=== PATIENT | female | born 1940 | race Caucasian/White ===

== ENCOUNTER 2018-09-06 13:41 | Inpatient (IN) | payer MEDICARE, MEDICAID ==
[~2018-09-06] VITALS: Ht 152.4 cm; Wt 84.4 kg
[2018-09-06] VITALS (9 sets, daily range): BP systolic 97–128; BP diastolic 57–72
[2018-09-06] MEDS ORDERED: PLAVIX75 MG PO (14:01)
[2018-09-06] MEDS ORDERED: KLOR-CON M2020 MEQ PO (14:02)
[2018-09-06] MEDS ORDERED: SINGULAIR10 MG PO (14:02)
[2018-09-06] MEDS ORDERED: LASIX40 MG PO (14:02)
[2018-09-06] MEDS ORDERED: TEMAZEPAM30 MG PO (14:02)
[2018-09-06] MEDS ORDERED: BETAPACE 80 MG80 MG PO (14:03)
[2018-09-06] MEDS ORDERED: ASPIRIN81 MG PO (14:03)
[2018-09-06 14:36] LABS: BASOPHILS 0.2 % (0-2); EOSINOPHILS 0.2 % (0-7); HEMATOCRIT 44.6 % (36.0-48.0); HEMOGLOBIN 14.6 g/dL (12-16); IMMATURE GRANULOCYTES 0.2 % (0-5); LYMPHOCYTES 18.9 % (15-50); MCH 31.3 pg (26.0-34.0); MCHC 32.7 g/dL (31.0-37.0); MCV 95.5 fL (80.0-100.0); MEAN PLATELET VOLUME 10.5 fL (7.4-10.4); MONOCYTES 4.3 % (2-11); NEUTROPHILS 76.2 % (40-80); PLATELET COUNT 327 10x3/uL (130-400); RBC 4.67 10x6/uL (4.00-5.40); RDW 16.2 % (11.5-14.5); WBC 11.1 10x3/uL (4.8-10.8)
[2018-09-06 14:51] LABS: ALBUMIN 2.8 g/dL (3.4-5.0); ANION GAP 15.2 mmol/L (8-16); BILIRUBIN - TOTAL 0.6 mg/dL (0.2-1.3); CALCIUM 8.3 mg/dL (8.5-10.1); CARBON DIOXIDE 21.9 mmol/L (21.0-32.0); POTASSIUM - SERUM 5.1 mmol/L (3.5-5.1); PROTEIN - SERUM 6.5 g/dL (6.4-8.2)
[2018-09-06 16:35] LABS: TROPONIN-I 0.032 ng/mL (0.000-0.060)
[2018-09-07 00:21] VITALS: BP 101/60; BMI 36.4
[2018-09-07 04:00] VITALS: BP 131/72
[2018-09-07 07:00] VITALS: BP 129/80
--- NOTE | 2018-09-07 10:45 | HP ---
PATIENT: ANICETO AJ MEDICAL RECORD: [id number] ACCOUNT: [id number] LOCATION:[address] : 40 ADMISSION DATE: 09/06/18 PCP: LOUIE BARAJAS MD HISTORY AND PHYSICAL EXAMINATION DIAGNOSES: 1. Atrial fibrillation. 2. Nonsustained ventricular tachycardia. 3. Coronary artery disease. 4. Previous coronary percutaneous transluminal coronary angioplasty and stent. HISTORY OF PRESENT ILLNESS: Ms. Aj presents with fatigue and shortness of breath. She presented to our office with it and was found to be in new-onset atrial fibrillation, this was yesterday. She was placed on a monitor. With monitor, she has had episodes of ventricular tachycardia as well as underlying atrial fibrillation. She has not had a history of atrial fibrillation. She does have a history of coronary artery disease, two-vessel PTCA and stent in June. She has not had any chest discomfort. Her EKG is with no ST-T abnormalities. It is with Afib. PHYSICAL EXAMINATION: GENERAL APPEARANCE: Well-nourished, well-developed, appears stated age. Level of distress, comfortable. PSYCHIATRIC: Mental status, alert, normal affect. Orientation, oriented to time, place and person. EYES: Lids and conjunctiva, noninjected. No discharge, no pallor. ENT: Lips, teeth, gums, normal dentition. Oropharynx, no cyanosis, no pallor. NECK: Carotid arteries, bilateral normal upstroke, no bruits, no thrills. JUGULAR VEINS: No jugular venous pressure or distention. CERVICAL LYMPH NODES: Nontender, nonenlarged. THYROID: Not enlarged. Nontender. No nodules. LUNGS: Respiratory effort, unlabored. CHEST: Normal curvature. No thoracic deformity. No chest wall tenderness. Percussion, resonant. Auscultation, clear. No wheezes, no rales, no rhonchi. CARDIOVASCULAR: Precordial exam, nondisplaced. No heaves or pericardial thrills. Irregularly irregular in atrial fibrillation. Heart sounds, normal S1, normal S2. No S3, no gallop, no rub. EXTREMITIES: No cyanosis, no edema. Peripheral pulses, full and equal in all extremities, except as noted. No bruits appreciated. ABDOMEN: Soft, nondistended. Normal aorta. No bruit. Nontender. No masses. Liver, nontender, no hepatomegaly. Spleen, nontender, no splenomegaly. MUSCULOSKELETAL: No joint tenderness. No joint swelling. No erythema. NEUROLOGICAL: Normal gait, normal strength, normal tone. SKIN: Warm and dry. OVERALL IMPRESSION: Atrial fibrillation with episodes of nonsustained ventricular tachycardia as well. We will place her on amiodarone and also give her a dose of Lovenox if she does not convert on the IV and p.o. amiodarone, plan for DC cardioversion in the a.m. TRANSINT:[id number] Voice Confirmation ID: [id number] DOCUMENT ID: [id number] HISTORY AND PHYSICAL [id number] ANICETO AJ, JESSY SALGADO at 1045 CC: [id number] DICTATION DATE: 09/06/181817 DINING MANAGER: 09/06/182006 ADM IN [facility] [address] [place] [address]
[2018-09-07 11:02] VITALS: Ht 152.4 cm; Wt 84.4 kg
[2018-09-07 16:11] VITALS: BP 138/96
[2018-09-07 20:00] VITALS: BP 101/61
[2018-09-08 04:00] VITALS: BP 91/48
[2018-09-08 10:19] VITALS: BP 106/48
[2018-09-08 17:31] VITALS: BP 99/55
[2018-09-08 21:10] VITALS: BP 101/39
[2018-09-09 00:46] VITALS: BP 91/46
[2018-09-09 05:27] VITALS: BP 117/58
[2018-09-09 08:17] VITALS: BP 108/58
--- NOTE | 2018-09-09 12:02 | EC ---
PATIENT:ANICETO CHAPARRO DATE OF SERVICE: 09/06/18 SEX: F MEDICAL RECORD: [id number] DATE OF : 40 LOCATION:D.M2 D.211 AGE OF PATIENT: 78 ADMISSION DATE: 09/08/18 REFERRING PHYSICIAN: INTERPRETING PHYSICIAN: JESSY OLIVA MD ECHOCARDIOGRAM REPORT ECHO CHARGES 4 ECHO COMPLETE Date: 09/07/18 CLINICAL DIAGNOSIS: A-FIB ECHOCARDIOGRAPHIC MEASUREMENTS (adult normal given) AC root (d.<3.7cm) 2.7 cm LV Septum d (<1.2 cm> 1.3 cm Valve Excursion 0.6 cm LV Septum (systole) 1.7 cm Left Atria (s.<4.0cm> 4.5 cm LVPW d(<1.2cm) 1.4 cm RV (d.<2.3cm) 3.1 cm LVPW (sytole) 1.9 cm LV diastole(<5.6CM) 5.4 cm MV E-F(>70mm/sec) cm LV systole 3.9 cm LVOT Diameter 1.9 cm MV exc.(>10mm) cm Est.ejection fraction (50-75%) % DOPPLER: LVIT cm/sec A cm/sec E 147 cm/sec LA cm/sec RVSP 68.1 mmHg LVOT 55.0 cm/sec AOP1/2T m/s Asc. Ao 323 cm/sec RVOT 45.0 cm/sec RA cm/sec PA 38.0 cm/sec AV Gradient Peak 42.0 mmHg AV Mean 23.3 mmHg AV Area 0.4 cm MV Gradient Peak 11.1 mmHg MV Mean 3.7 mmHg MV Area cm COMMENTS: Floor Representative: 1 [place]NEY ALEXISOE Car Changer: 1 Dr. Oliva TAPE# PACS Pericardial Effusion N DATE OF SERVICE: FINDINGS: 1. Left ventricular chamber size is dilated. Left ventricular systolic function is markedly reduced. Overall ejection fraction is 20%. 2. Left atrium is enlarged at 4.5 cm. Right atrium and right ventricular chamber sizes are as well mildly dilated. 3. Valvular structures: Aortic valve demonstrates severe calcific aortic stenosis. Valve area calculates to 0.4 cm-squared. There is gradient of 42 mm across the valve. Remaining valvular structures have normal structure and ECHOCARDIOGRAM REPORT [id number] ANICETO CHAPARRO motion. 4. Doppler interrogation reveals severe mitral regurgitation and [id number]-ih-[id number] tricuspid regurgitation. No other valvular insufficiency or stenosis. Pulmonary systolic pressure is estimated at 68 mmHg. 5. No evidence of pericardial effusion or left ventricular thrombus. TRANSINT:[id number] Voice Confirmation ID: [id number] DOCUMENT ID: [id number] JESSY OLIVA MD at 1202 CC: [id number] DICTATION DATE: 09/07/18 1330 TELEGRAPHIC TYPEWRITER REPAIRER: 09/07/18 2146 ADM IN [place] [id number] [place] [id number]
[2018-09-09 12:19] VITALS: BP 104/51
[2018-09-09] MEDS ORDERED: COREG6.25 MG PO (12:24)
[2018-09-09] MEDS ORDERED: AMIODARONE HCL200 MG PO (12:25)
--- NOTE | 2018-09-10 10:13 | DS ---
PATIENT:ANICETO CHAPARRO :40 MEDICAL RECORD: [id number] DISCHARGE SUMMARY ADMISSION DATE: 09/08/18 DISCHARGE DATE: 09/09/18 DIAGNOSES: 1. Congestive heart failure, chronic systolic dysfunction. 2. Atrial fibrillation. 3. Ventricular tachycardia. 4. Coronary artery disease. 5. Previous PTCA stent. 6. Cardiomyopathy. 7. Aortic stenosis. HOSPITAL COURSE: Mrs. Chaparro presents with decompensation from CHF and found to be in atrial fibrillation. She was placed on Cordarone and Coreg. She converted to sinus rhythm. Her ejection fraction is markedly depressed at 20%; however, this is secondary to valvular heart disease as she underwent PTCA stent of 2 vessels last month. She has severe aortic stenosis, valve area calculates to 0.4 cm-squared, most likely she is not a candidate for open valve replacement. We will see how she does with medical management. If she continues to have problems, would send her for possible transcatheter valve evaluation. TRANSINT:[id number] Voice Confirmation ID: [id number] DOCUMENT ID: [id number] JESSY BOYD MD at 1013 CC: [id number] DICTATION DATE: 09/09/18 1210 CHIN STRAP MAKER: 09/10/18 0757 DIS IN 09/09/18 [place] [id number] [place] [id number]
--- NOTE | 2018-09-10 10:18 | MORECARE ---
CASE MANAGEMENT DISCHARGE SUMMARY PATIENT: ANICETO CHAPARRO UNIT: [id number] ADM DATE: 09/08/18 AGE: 78 : 40 SEX: F ROOM/BED: D.2236 AUTHOR: CESAR FELDER PHYSICIAN: REFERRING PHYSICIAN: JESSY BOYD MD DATE OF SERVICE: 09/10/18 Discharge Plan Patient Name: ANICETO CHAPARRO [facility] [facility] 1940 Planned Disposition: Home Anticipated Discharge Date: 09/08/18 Discharge Date: 09/09/2018 Expected LOS: 1 Initial Reviewer: [email or web address] Initial Review Date: 09/10/2018 Generated: 09/10/18 11:18 am Patient Name: ANICETO CHAPARRO Page [id number] at 1018 All edits/amendments must be made on the electronic document DICTATION DATE: 09/10/18 1018 TRAUMA DOCTOR: AWAIS 09/10/18 1018 RPT#: [id number] DC DATE:09/09/18 STATUS: DIS IN [facility] [address] [place] [address] END OF REPORT
== END 2018-09-09 13:37 | disposition home or self-care (01) | DRG 308 ==
LOC: D.ER 13:41 → D.M2 18:36 → OBSVTIME 18:36 → D.M2 09-08 14:01
PROVIDERS: Family Medicine; ADMIT Internal Medicine Interventional Cardiology
DX: I48.91 Unspecified atrial fibrillation (principal); I50.23 Acute on chronic systolic (congestive) heart failure; I47.2 Ventricular tachycardia; I25.10 Atherosclerotic heart disease of native coronary artery without angina pectoris; Z95.5 Presence of coronary angioplasty implant and graft; I42.9 Cardiomyopathy, unspecified